=== PATIENT | male | born 1965 | race Caucasian/White ===

== ENCOUNTER 2018-04-04 17:27 | Inpatient (IN) ==
[2018-04-04] MEDS ORDERED: *HR* LORazepam 2 MG/ML VIAL IVP ONE (17:38)
[2018-04-04] MEDS ORDERED: Folic Acid 1 MG in D5% in Water 50 ML IVPB ONE (17:38)
[2018-04-04] MEDS ORDERED: 0.9 % Sodium Chloride 1,000 ML IVC ONE (17:38)
[2018-04-04] MEDS ORDERED: Thiamine (B-1) 100 MG in D5% in Water 50 ML IVPB ONE (17:38)
[2018-04-04] MEDS ORDERED: MVI, adult with vitamin K 10 ML in 0.9 % Sodium Chloride 1,000 ML IVC ONE (17:38)
--- NOTE | 2018-04-04 17:58 | Emergency Department Note ---
Disposition Clinical Impression: Alcohol withdrawal Qualifiers: Complication of substance-induced condition: uncomplicated Qualified Code(s): F10.230 - Alcohol dependence with withdrawal, uncomplicated Pancreatitis Qualifiers: Chronicity: acute Pancreatitis type: alcohol induced Acute pancreatitis complication: no infection or necrosis Qualified Code(s): K85.20 - Alcohol induced acute pancreatitis without necrosis or infection Disposition: Admitted As Inpatient Condition: Fair Referrals: Aj Tobias MD [Primary Care Provider] - Forms: ED Satisfaction Letter, Work/School Release Time of Disposition: 18:51 Abdominal Pain HPI - General Chief Complaint: ED Abdominal Pain Stated Complaint: abd pain Time Seen by Provider: 04/04/18 17:32 Source: patient - History of Present Illness HPI Narrative: 52 yo male presents with acute upper abdominal pain. He thinks his pancreas is causing his pain - he has a PMH of chronic pancreatitis due to alcohol abuse. He also is in acute withdrawal - his last drink was (2 days ago). He was drinking 12-18 beers daily prior to stopping. He has associated nausea without vomiting, early satiety, nonbloody nonmucus diarrhea (3 episodes today) , and tremors. Pain Scale: 10 - Related Data Home Medications Medication Instructions Recorded Confirmed Fluticasone Propionate Nasal 2 spr NS DAILY PRN 01/09/18 02/25/18 [Flonase] Losartan Potassium [Cozaar] 75 mg PO DAILY 01/09/18 02/25/18 Montelukast [Singulair] 10 mg PO HS 01/09/18 02/25/18 Naproxen [Naproxen] 500 mg PO Q12H PRN 01/09/18 02/25/18 Omeprazole [PriLOSEC] 40 mg PO DAILY 01/09/18 02/25/18 Zolpidem [Ambien] 10 mg PO HS PRN 01/09/18 02/25/18 Atorvastatin [Lipitor] 10 mg PO DAILY 02/25/18 02/25/18 Previous Rx's Medication Instructions Recorded LORazepam [Ativan] 1 mg PO Q6H 5 Days #20 tablet 02/25/18 Ondansetron ODT [Zofran ODT] 4 mg SL Q6HR PRN #15 tab.rapdis 02/25/18 OxyCODONE/APAP 5/325 [Percocet 1 each PO Q4H PRN 4 Days #18 tablet 02/25/18 5/325 MG] Allergies Allergy/AdvReac Type Severity Reaction Status Date / Time diphenhydramine AdvReac Shakiness Verified 02/25/18 09:06 [From Benadryl] Constitutional: Denies: weakness Cardiovascular: Reports: chest pain ("due to anxiety"). Denies: palpitations Respiratory: Denies: dyspnea Gastrointestinal: Reports: abdominal pain, nausea, diarrhea. Denies: vomiting Genitourinary: Denies: dysuria, hematuria Neurological: Reports: headache, other (tremor) Psychiatric: Denies: suicidal thoughts, homicidal thoughts, auditory hallucinations, visual hallucinations Abdominal Pain PMH - Past Medical History Medical history: Reports: asthma, hyperlipidemia, hypertension, other Psychiatric history: Reports: no psych history - Social History Smoking status: Former smoker Alcohol use: Reports: heavy Drug use: Reports: none Physical Exam - General Limitations: no limitations General appearance: alert, in no apparent distress - Head Head exam: atraumatic, normocephalic, normal inspection - Eye Eye exam: Present: normal appearance - ENT ENT exam: mucous membranes moist - Neck Neck exam: Present: normal inspection - Chest Chest inspection: Present: normal inspection - Respiratory Respiratory exam: Present: normal lung sounds bilaterally - Cardiovascular Cardiovascular exam: Present: regular rate, normal rhythm, normal heart sounds - Abdominal Exam Abdominal exam: Present: soft, tenderness, normal bowel sounds. Absent: distention, guarding, rebound, rigidity Abdominal tenderness: Present: RUQ, LUQ, moderate - Extremities Exam Extremities exam: Present: normal inspection, other (posterior tibial pulses +2/ 4 bilateral). Absent: pedal edema Course Vital Signs Temperature 97.7 F 04/04/18 17:29 Pulse Rate 92 04/04/18 17:29 Respiratory Rate 16 04/04/18 17:29 Blood Pressure 158/96 04/04/18 17:29 O2 Sat by Pulse Oximetry 99 04/04/18 17:29 Temperature 97.7 F 04/04/18 17:29 Pulse Rate 92 04/04/18 17:29 Respiratory Rate 16 04/04/18 17:29 Blood Pressure 158/96 04/04/18 17:29 O2 Sat by Pulse Oximetry 99 04/04/18 17:29 Oxygen Delivery Oxygen Delivery Room Air Abdominal Pain - MDM Narrative Medical decision making narrative: 52 yo male with acute onset abdominal pain 2 days after alcohol cessation. PMH of chronic pancreatitis and alcohol abuse. Currently experiencing tremors, but no hallucinations or delirium. Lipase in the 200s, unsure of amount of pancreatic insufficiency. Admit to medicine. Spoke to Dr. Cao, who agrees to admit the patient. - Lab Data Result diagrams: 04/04/18 17:45 04/04/18 17:45 Lab Results 04/04/18 04/04/18 04/04/18 Range/Units 17:45 17:45 17:45 WBC 11.1 (4.3-11.1) K/mcL RBC 4.84 (4.19-5.50) M/mcL Hgb 15.5 (12.9-16.9) g/dL Hct 44.1 (37.5-50.1) % MCV 91.1 (83.0-100.0) fL MCH 32.0 (28.0-33.3) pg MCHC 35.1 (31.6-35.5) g/dL RDW 12.7 (11.5-14.5) % Plt Count 148 (140-400) K/mcL MPV 10.5 (9.4-12.4) fL Immature Gran % 0.3 (0-4) % Seg Neutrophils % 72.5 % Lymphocytes % 14.1 % Monocytes % 11.0 % Eosinophils % 1.7 % Basophils % 0.4 % Neutrophils # 8.0 (1.6-8.9) K/mcL Lymphocytes # 1.6 (0.6-4.6) K/mcL Monocytes # 1.2 (0.0-1.3) K/mcL Eosinophils # 0.2 (0.0-0.6) K/mcL Basophils # 0.0 (0.0-0.2) K/mcL PT (9.4-12.1) Seconds INR Sodium (136-145) mEq/L Potassium (3.5-5.1) mEq/L Chloride (98-107) mEq/L Carbon Dioxide (23-29) mEq/L BUN (6-20) mg/dL Creatinine (0.70-1.30) mg/dL Est GFR ( Amer) (> 60) Est GFR (Non-Af Amer) (> 60) BUN/Creatinine Ratio (6-26) Glucose (70-105) mg/dL Calculated Osmolality (280-300) Calcium (8.6-10.3) mg/dL Phosphorus (2.7-4.5) mg/dL Magnesium (1.6-2.6) mg/dL Total Bilirubin (0.3-1.0) mg/dL Direct Bilirubin (0.0-0.2) mg/dL Indirect Bilirubin (0.0-1.2) mg/dL AST (13-39) Units/L ALT (7-52) Units/L Alkaline Phosphatase (34-104) Units/L Serum Total Protein (6.4-8.9) g/dL Albumin (3.5-5.7) g/dL Globulin (2.4-3.5) g/dL Albumin/Globulin Ratio (1.1-2.2) Lipase (11-82) Units/L Urine Color Yellow (Yellow) Urine Clarity Clear (Clear) Urine pH 6.0 (5.0-8.0) pH Units Ur Specific [place] 1.025 (1.010-1.025) Urine Protein Negative (Neg-Trace) mg/dL Urine Glucose (UA) 100 H (Normal) mg/dL Urine Ketones Negative (Negative) mg/dL Urine Blood Negative (Negative) Urine Nitrite Negative (Negative) Urine Bilirubin Negative (Negative) Urine Urobilinogen Normal (Normal) mg/dL Ur Leukocyte Esterase Negative (Negative) Urine Opiates Screen Negative (Zifbqh=980) ng/mL Ur Barbiturates Screen Negative (Vlsnij=127) ng/mL Ur Phencyclidine Scrn Negative (Cutoff=25) ng/mL Ur Amphetamines Screen Negative (Dyhwqo=8519) ng/mL U Benzodiazepines Scrn Positive H (Nhvepb=967) ng/mL Urine Cocaine Screen Negative (Cutoff= 300) ng/mL U Marijuana (THC) Screen Negative (Cutoff = 50) ng/mL Ur Drug Screen Interp See Below Ethyl Alcohol (Less than 10) mg/dL 04/04/18 04/04/18 Range/Units 17:45 17:45 WBC (4.3-11.1) K/mcL RBC (4.19-5.50) M/mcL Hgb (12.9-16.9) g/dL Hct (37.5-50.1) % MCV (83.0-100.0) fL MCH (28.0-33.3) pg MCHC (31.6-35.5) g/dL RDW (11.5-14.5) % Plt Count (140-400) K/mcL MPV (9.4-12.4) fL Immature Gran % (0-4) % Seg Neutrophils % % Lymphocytes % % Monocytes % % Eosinophils % % Basophils % % Neutrophils # (1.6-8.9) K/mcL Lymphocytes # (0.6-4.6) K/mcL Monocytes # (0.0-1.3) K/mcL Eosinophils # (0.0-0.6) K/mcL Basophils # (0.0-0.2) K/mcL PT 10.4 (9.4-12.1) Seconds INR 0.9 Sodium 138 (136-145) mEq/L Potassium 3.6 (3.5-5.1) mEq/L Chloride 100 (98-107) mEq/L Carbon Dioxide 28 (23-29) mEq/L BUN 16 (6-20) mg/dL Creatinine 0.72 (0.70-1.30) mg/dL Est GFR ( Amer) > 60 (> 60) Est GFR (Non-Af Amer) > 60 (> 60) BUN/Creatinine Ratio 22 (6-26) Glucose 105 (70-105) mg/dL Calculated Osmolality 288 (280-300) Calcium 9.4 (8.6-10.3) mg/dL Phosphorus 3.1 (2.7-4.5) mg/dL Magnesium 1.9 (1.6-2.6) mg/dL Total Bilirubin 0.9 (0.3-1.0) mg/dL Direct Bilirubin 0.1 (0.0-0.2) mg/dL Indirect Bilirubin 0.8 (0.0-1.2) mg/dL AST 33 (13-39) Units/L ALT 39 (7-52) Units/L Alkaline Phosphatase 96 (34-104) Units/L Serum Total Protein 7.2 (6.4-8.9) g/dL Albumin 4.4 (3.5-5.7) g/dL Globulin 2.8 (2.4-3.5) g/dL Albumin/Globulin Ratio 1.6 (1.1-2.2) Lipase 283 H (11-82) Units/L Urine Color (Yellow) Urine Clarity (Clear) Urine pH (5.0-8.0) pH Units Ur Specific [place] (1.010-1.025) Urine Protein (Neg-Trace) mg/dL Urine Glucose (UA) (Normal) mg/dL Urine Ketones (Negative) mg/dL Urine Blood (Negative) Urine Nitrite (Negative) Urine Bilirubin (Negative) Urine Urobilinogen (Normal) mg/dL Ur Leukocyte Esterase (Negative) Urine Opiates Screen (Metnsg=271) ng/mL Ur Barbiturates Screen (Qaenzh=140) ng/mL Ur Phencyclidine Scrn (Cutoff=25) ng/mL Ur Amphetamines Screen (Avgiri=9851) ng/mL U Benzodiazepines Scrn (Umhcuo=441) ng/mL Urine Cocaine Screen (Cutoff= 300) ng/mL U Marijuana (THC) Screen (Cutoff = 50) ng/mL Ur Drug Screen Interp Ethyl Alcohol < 10 (Less than 10) mg/dL
[2018-04-04 18:01] LABS: Bilirubin,Urine Negative (Negative); Blood,Urine Negative (Negative); Clarity,Urine Clear (Clear); Color,Urine Yellow (Yellow); Glucose,Urine (UA) 100 mg/dL (Normal); Ketones,Urine Negative (Negative); Leukocyte Esterase,Urine Negative (Negative); Nitrite,Urine Negative (Negative); Protein,Urine Negative (Neg-Trace); Specific Gravity,Urine 1.025 (1.010-1.025); Urobilinogen,Urine Normal (Normal)
[2018-04-04 18:02] LABS: Basophils % 0.4 %; Eosinophils # 0.2 K/mcL (0.0-0.6); Eosinophils % 1.7 %; Hematocrit 44.1 % (37.5-50.1); Hemoglobin 15.5 g/dL (12.9-16.9); Immature Granulocytes % 0.3 % (0-4); Lymphocytes # 1.6 K/mcL (0.6-4.6); Lymphocytes % 14.1 %; Mean Corpuscular HGB Conc 35.1 g/dL (31.6-35.5); Mean Corpuscular Volume 91.1 fL (83.0-100.0); Mean Platelet Volume 10.5 fL (9.4-12.4); Monocytes # 1.2 K/mcL (0.0-1.3); Platelet Count 148 K/mcL (140-400); Red Blood Count 4.84 M/mcL (4.19-5.50); Red Cell Distribution Width 12.7 % (11.5-14.5); Segmented Neutrophils % 72.5 %
[2018-04-04 18:07] LABS: INR 0.9; Prothrombin Time 10.4 Seconds (9.4-12.1)
[2018-04-04 18:21] LABS: Alanine Aminotransferase 39 Units/L (7-52); Albumin 4.4 g/dL (3.5-5.7); Albumin/Globulin Ratio 1.6 (1.1-2.2); Alkaline Phosphatase 96 Units/L (34-104); Aspartate Amino Transferase 33 Units/L (13-39); BUN/Creatinine Ratio 22 (6-26); Bilirubin,Direct 0.1 mg/dL (0.0-0.2); Bilirubin,Indirect 0.8 mg/dL (0.0-1.2); Bilirubin,Total 0.9 mg/dL (0.3-1.0); Blood Urea Nitrogen 16 mg/dL (6-20); Calcium 9.4 mg/dL (8.6-10.3); Carbon Dioxide 28 mEq/L (23-29); Chloride 100 mEq/L (98-107); Ethanol < 10 mg/dL (Less than 10); Globulin 2.8 g/dL (2.4-3.5); Glucose 105 mg/dL (70-105); Lipase 283 Units/L (11-82); Magnesium 1.9 mg/dL (1.6-2.6); Osmolality,Calculated 288 (280-300); Phosphorous 3.1 mg/dL (2.7-4.5); Potassium 3.6 mEq/L (3.5-5.1); Sodium 138 mEq/L (136-145); Total Protein 7.2 g/dL (6.4-8.9); eGFR For Non-African Americans > 60 (> 60)
[2018-04-04 18:26] LABS: Amphetamine Screen,Urine Negative ng/mL (Cutoff=1000); Barbiturate Screen,Urine Negative ng/mL (Cutoff=200); Benzodiazepines Screen,Urine Positive ng/mL (Cutoff=200); Cannabinoid Screen,Urine Negative ng/mL (Cutoff = 50); Cocaine Screen,Urine Negative ng/mL (Cutoff= 300); Opiate Screen,Urine Negative ng/mL (Cutoff=300); Phencyclidine Screen,Urine Negative ng/mL (Cutoff=25)
[2018-04-04] MEDS ORDERED: *HR* FentaNYL (PF) 100 MCG/2 ML VIAL IVP ONE (18:30)
--- NOTE | 2018-04-04 18:38 | Emergency Department Note ---
Disposition Clinical Impression: Alcohol withdrawal Qualifiers: Complication of substance-induced condition: uncomplicated Qualified Code(s): F10.230 - Alcohol dependence with withdrawal, uncomplicated Pancreatitis Qualifiers: Chronicity: acute Pancreatitis type: alcohol induced Acute pancreatitis complication: no infection or necrosis Qualified Code(s): K85.20 - Alcohol induced acute pancreatitis without necrosis or infection Disposition: Admitted As Inpatient Forms: ED Satisfaction Letter, Work/School Release Time of Disposition: 18:38 General Adult HPI - General Chief complaint: ED Abdominal Pain Stated complaint: abd pain Time Seen by Provider: 04/04/18 17:32 Source: patient Limitations: no limitations - History of Present Illness Pain Scale: 10 - Related Data Home Medications Medication Instructions Recorded Confirmed Fluticasone Propionate Nasal 2 spr NS DAILY PRN 01/09/18 02/25/18 [Flonase] Losartan Potassium [Cozaar] 75 mg PO DAILY 01/09/18 02/25/18 Montelukast [Singulair] 10 mg PO HS 01/09/18 02/25/18 Naproxen [Naproxen] 500 mg PO Q12H PRN 01/09/18 02/25/18 Omeprazole [PriLOSEC] 40 mg PO DAILY 01/09/18 02/25/18 Zolpidem [Ambien] 10 mg PO HS PRN 01/09/18 02/25/18 Atorvastatin [Lipitor] 10 mg PO DAILY 02/25/18 02/25/18 Previous Rx's Medication Instructions Recorded LORazepam [Ativan] 1 mg PO Q6H 5 Days #20 tablet 02/25/18 Ondansetron ODT [Zofran ODT] 4 mg SL Q6HR PRN #15 tab.rapdis 02/25/18 OxyCODONE/APAP 5/325 [Percocet 1 each PO Q4H PRN 4 Days #18 tablet 02/25/18 5/325 MG] Allergies Allergy/AdvReac Type Severity Reaction Status Date / Time diphenhydramine AdvReac Shakiness Verified 02/25/18 09:06 [From Benadryl] Constitutional: Denies: weakness Cardiovascular: Reports: chest pain ("due to anxiety"). Denies: palpitations Respiratory: Denies: dyspnea Gastrointestinal: Reports: abdominal pain, nausea, diarrhea. Denies: vomiting Genitourinary: Denies: dysuria, hematuria Neurological: Reports: headache, other (tremor) Psychiatric: Denies: suicidal thoughts, homicidal thoughts, auditory hallucinations, visual hallucinations Past Medical History - Past Medical History Medical history: Reports: asthma, hyperlipidemia, hypertension, other Psychiatric history: Reports: no psych history - Social History Smoking Status: Former smoker Smokeless Tobacco Status: No Alcohol use: Reports: heavy Drug use: Reports: none Physical Exam - General Limitations: no limitations General appearance: alert, in no apparent distress Course Vital Signs Temperature 97.7 F 04/04/18 17:29 Pulse Rate 92 04/04/18 17:29 Respiratory Rate 16 04/04/18 17:29 Blood Pressure 158/96 04/04/18 17:29 O2 Sat by Pulse Oximetry 99 04/04/18 17:29 Temperature 97.7 F 04/04/18 17:29 Pulse Rate 92 04/04/18 17:29 Respiratory Rate 16 04/04/18 17:29 Blood Pressure 158/96 04/04/18 17:29 O2 Sat by Pulse Oximetry 99 04/04/18 17:29 Oxygen Delivery Oxygen Delivery Room Air Medical Decision Making - Lab Data Result diagrams: 04/04/18 17:45 04/04/18 17:45 Lab Results 04/04/18 04/04/18 04/04/18 Range/Units 17:45 17:45 17:45 WBC 11.1 (4.3-11.1) K/mcL RBC 4.84 (4.19-5.50) M/mcL Hgb 15.5 (12.9-16.9) g/dL Hct 44.1 (37.5-50.1) % MCV 91.1 (83.0-100.0) fL MCH 32.0 (28.0-33.3) pg MCHC 35.1 (31.6-35.5) g/dL RDW 12.7 (11.5-14.5) % Plt Count 148 (140-400) K/mcL MPV 10.5 (9.4-12.4) fL Immature Gran % 0.3 (0-4) % Seg Neutrophils % 72.5 % Lymphocytes % 14.1 % Monocytes % 11.0 % Eosinophils % 1.7 % Basophils % 0.4 % Neutrophils # 8.0 (1.6-8.9) K/mcL Lymphocytes # 1.6 (0.6-4.6) K/mcL Monocytes # 1.2 (0.0-1.3) K/mcL Eosinophils # 0.2 (0.0-0.6) K/mcL Basophils # 0.0 (0.0-0.2) K/mcL PT (9.4-12.1) Seconds INR Sodium (136-145) mEq/L Potassium (3.5-5.1) mEq/L Chloride (98-107) mEq/L Carbon Dioxide (23-29) mEq/L BUN (6-20) mg/dL Creatinine (0.70-1.30) mg/dL Est GFR ( Amer) (> 60) Est GFR (Non-Af Amer) (> 60) BUN/Creatinine Ratio (6-26) Glucose (70-105) mg/dL Calculated Osmolality (280-300) Calcium (8.6-10.3) mg/dL Phosphorus (2.7-4.5) mg/dL Magnesium (1.6-2.6) mg/dL Total Bilirubin (0.3-1.0) mg/dL Direct Bilirubin (0.0-0.2) mg/dL Indirect Bilirubin (0.0-1.2) mg/dL AST (13-39) Units/L ALT (7-52) Units/L Alkaline Phosphatase (34-104) Units/L Serum Total Protein (6.4-8.9) g/dL Albumin (3.5-5.7) g/dL Globulin (2.4-3.5) g/dL Albumin/Globulin Ratio (1.1-2.2) Lipase (11-82) Units/L Urine Color Yellow (Yellow) Urine Clarity Clear (Clear) Urine pH 6.0 (5.0-8.0) pH Units Ur Specific [place] 1.025 (1.010-1.025) Urine Protein Negative (Neg-Trace) mg/dL Urine Glucose (UA) 100 H (Normal) mg/dL Urine Ketones Negative (Negative) mg/dL Urine Blood Negative (Negative) Urine Nitrite Negative (Negative) Urine Bilirubin Negative (Negative) Urine Urobilinogen Normal (Normal) mg/dL Ur Leukocyte Esterase Negative (Negative) Urine Opiates Screen Negative (Jocpkw=618) ng/mL Ur Barbiturates Screen Negative (Kvqljj=967) ng/mL Ur Phencyclidine Scrn Negative (Cutoff=25) ng/mL Ur Amphetamines Screen Negative (Ebqtjk=4418) ng/mL U Benzodiazepines Scrn Positive H (Fopwfl=044) ng/mL Urine Cocaine Screen Negative (Cutoff= 300) ng/mL U Marijuana (THC) Screen Negative (Cutoff = 50) ng/mL Ur Drug Screen Interp See Below Ethyl Alcohol (Less than 10) mg/dL 04/04/18 04/04/18 Range/Units 17:45 17:45 WBC (4.3-11.1) K/mcL RBC (4.19-5.50) M/mcL Hgb (12.9-16.9) g/dL Hct (37.5-50.1) % MCV (83.0-100.0) fL MCH (28.0-33.3) pg MCHC (31.6-35.5) g/dL RDW (11.5-14.5) % Plt Count (140-400) K/mcL MPV (9.4-12.4) fL Immature Gran % (0-4) % Seg Neutrophils % % Lymphocytes % % Monocytes % % Eosinophils % % Basophils % % Neutrophils # (1.6-8.9) K/mcL Lymphocytes # (0.6-4.6) K/mcL Monocytes # (0.0-1.3) K/mcL Eosinophils # (0.0-0.6) K/mcL Basophils # (0.0-0.2) K/mcL PT 10.4 (9.4-12.1) Seconds INR 0.9 Sodium 138 (136-145) mEq/L Potassium 3.6 (3.5-5.1) mEq/L Chloride 100 (98-107) mEq/L Carbon Dioxide 28 (23-29) mEq/L BUN 16 (6-20) mg/dL Creatinine 0.72 (0.70-1.30) mg/dL Est GFR ( Amer) > 60 (> 60) Est GFR (Non-Af Amer) > 60 (> 60) BUN/Creatinine Ratio 22 (6-26) Glucose 105 (70-105) mg/dL Calculated Osmolality 288 (280-300) Calcium 9.4 (8.6-10.3) mg/dL Phosphorus 3.1 (2.7-4.5) mg/dL Magnesium 1.9 (1.6-2.6) mg/dL Total Bilirubin 0.9 (0.3-1.0) mg/dL Direct Bilirubin 0.1 (0.0-0.2) mg/dL Indirect Bilirubin 0.8 (0.0-1.2) mg/dL AST 33 (13-39) Units/L ALT 39 (7-52) Units/L Alkaline Phosphatase 96 (34-104) Units/L Serum Total Protein 7.2 (6.4-8.9) g/dL Albumin 4.4 (3.5-5.7) g/dL Globulin 2.8 (2.4-3.5) g/dL Albumin/Globulin Ratio 1.6 (1.1-2.2) Lipase 283 H (11-82) Units/L Urine Color (Yellow) Urine Clarity (Clear) Urine pH (5.0-8.0) pH Units Ur Specific [place] (1.010-1.025) Urine Protein (Neg-Trace) mg/dL Urine Glucose (UA) (Normal) mg/dL Urine Ketones (Negative) mg/dL Urine Blood (Negative) Urine Nitrite (Negative) Urine Bilirubin (Negative) Urine Urobilinogen (Normal) mg/dL Ur Leukocyte Esterase (Negative) Urine Opiates Screen (Kkynpm=442) ng/mL Ur Barbiturates Screen (Pogudl=947) ng/mL Ur Phencyclidine Scrn (Cutoff=25) ng/mL Ur Amphetamines Screen (Fmuhfg=5734) ng/mL U Benzodiazepines Scrn (Dclydx=971) ng/mL Urine Cocaine Screen (Cutoff= 300) ng/mL U Marijuana (THC) Screen (Cutoff = 50) ng/mL Ur Drug Screen Interp Ethyl Alcohol < 10 (Less than 10) mg/dL Attestation Statement - Attestation Attestation: I examined this patient and my medical decision-making was reviewed with the Resident Physician. I agree with the documented findings, disposition and treatment plan as described except to the extent set forth below. 52 year old male presents to the ED with complaints of abdominal pain and is a daily drinker and statse that he hasnt had antyhing to drink since Thrusday. he hasbeen drinking more since he was fired from his job about 3 weeks ago. Patinet states that he has a history of pancreatitis and that he was aoffered admission one week ago but declined because he though he could manage it at home. TOday he is experincing icnreased epigastric pain with nausea without vomitting and states that th is roberta simlair to his pancreatitis attacks in the pas.t It appears that it is 283 tonight and he is having mild tremors at bedside. We will admit to medicine for ETOH withdrawl and pancreatitis
[2018-04-04] MEDS ORDERED: Ondansetron 4 MG/2 ML VIAL IVP ONE (18:39)
--- NOTE | 2018-04-04 20:22 | Internal Med History&Physical ---
Date of Encounter: 04/04/18 Time of Encounter: 20:45 Internal Medicine - H&P: HPI Chief complaint: Acute pancreatitis, alcohol withdrawal Admitted From: Home Plans for Post Hospital Care: Home History of present illness: Mr. Mckeon is a 52 year old male Patient presented to the emergency room after a several day history of epigastric pain. He states he stopped drinking 3 days ago due to this pain and thus subsequently has been going through alcohol withdrawal. On the morning of admission he states he tried to drink some juice and chicken broth but that made his pain much worse. He is a heavy alcohol user stating that he drinks 20- 30 beers a day. He denies other drug use. The pain he feels is centrally located in the epigastric area radiates to the left side and is worse with eating and drinking. He has had similar episodes like this including 2 hospitalizations in the past. He has had a few episodes of loose stools but otherwise denies nausea and vomiting. He had been sober from alcohol for about 2 years but then started back up again a few months ago after he was fired from his job. He has been undergoing active withdrawal exhibiting tremors but denies hallucinations both auditory and visual. In the emergency room U tox positive for benzodiazepines and blood alcohol level was less than 10. CBC and BMP were both within normal limits. His lipase was elevated to 283. Chest x-ray showed no acute process. He was started on a banana bag, given Zofran, Ativan, fentanyl and 1 L of normal saline. He was admitted for further management of his pancreatitis and alcohol withdrawal. Past Med Surg Social Fam HX - Past Medical History Medical history: asthma, hyperlipidemia, hypertension, other Additional medical history: LIVER DISEASE Psychiatric history: no psych history - Past Surgical History Additional surgical history: double hernia repair. septoplasty - Social History Smoking Status: Former smoker Smokeless Tobacco Status: No Alcohol use: heavy Drug use: none - Family History Father Hx Family Cancer: Yes (non hodgkins) Internal Medicine - H&P: Meds Fluticasone Propionate Nasal [Flonase] 2 spr NS DAILY PRN 01/09/18 [History] Losartan Potassium [Cozaar] 75 mg PO DAILY 01/09/18 [History] Montelukast [Singulair] 10 mg PO HS 01/09/18 [History] Naproxen [Naproxen] 500 mg PO Q12H PRN 01/09/18 [History] Omeprazole [PriLOSEC] 40 mg PO DAILY 01/09/18 [History] Atorvastatin [Lipitor] 10 mg PO DAILY 02/25/18 [History] 3 Allergy/AdvReac Type Severity Reaction Status Date / Time diphenhydramine AdvReac Shakiness Verified 02/25/18 09:06 [From Benadryl] All Systems PM: A 10-system review of systems was performed and is negative for pertinent findings except as documented above in the HPI. - Constitutional Vitals: Temp Pulse Resp BP Pulse Ox 97.7 F 89 18 147/89 97 04/04/18 17:29 04/04/18 19:47 04/04/18 20:08 04/04/18 20:08 04/04/18 19:47 General appearance: Present: cooperative, mild distress, A&O X 3, answers questions appropriately - Head Head exam: Present: normal inspection - Eye Eye exam: Present: EOMI, normal appearance - Neck Neck exam general surgery: Present: full ROM. Absent: tenderness - Respiratory Respiratory exam: Present: CTAB. Absent: chest wall tenderness, decreased breath sounds, respiratory distress, wheezes - Cardiovascular Cardiovascular exam: Present: RRR. Absent: diastolic murmur, systolic murmur - GI/Abdominal GI/Abdominal exam: Present: hernia, normal bowel sounds, soft, tenderness Additional comments: Epigastric tenderness with pain in the left upper quadrant. Right upper quadrant mildly tender to palpation. Lower abdominal quadrants nontender. Ventral wall hernia self-reducible, presents with Valsalva and abdominal pressure - Extremities Exam Extremities exam: Present: warm, radial pulses palpable and symmetrical. Absent : calf tenderness, pedal edema, tenderness - Neurological Exam Neurological exam: Present: no focal deficits. Absent: strengths equal and symetr throughout, facial droop, speech deficit Additional comments: Slight tremor bilaterally upper extremities - Skin Skin exam: Present: dry, normal color, warm Internal Med - H&P Results - Labs CBC & Chem 7: 04/04/18 17:45 04/04/18 17:45 - Assessment and plan (1) Pancreatitis Current Visit: Yes Status: Acute Assessment and plan: Patient's lipase elevated to 283. His alcohol level was less than 10. He is a heavy drinker and likely this is the cause of his pancreatitis. He has had several episodes of this in the past including 2 previous hospitalizations. Nothing by mouth until patient's pain improves then proceed to advance diet as tolerated Sublingual oxycodone for pain control Continue to monitor O2 status Fluid hydration Qualifiers: Chronicity: acute Pancreatitis type: alcohol induced Acute pancreatitis complication: no infection or necrosis Qualified Code(s): K85.20 - Alcohol induced acute pancreatitis without necrosis or infection (2) Alcohol withdrawal Current Visit: Yes Status: Acute Assessment and plan: Patient has tremors on exam, but apparently this has improved since receiving Ativan in the emergency room. [facility] protocol Continue to Monitor Qualifiers: Complication of substance-induced condition: uncomplicated Qualified Code(s ): F10.230 - Alcohol dependence with withdrawal, uncomplicated (3) Hypertension Current Visit: Yes Status: Acute Assessment and plan: Patient takes losartan at home, blood pressure slightly elevated in the ER 159/ 95, currently 124/72. Continue to monitor Qualifiers: Qualified Code(s): I10 - Essential (primary) hypertension (4) GERD (gastroesophageal reflux disease) Current Visit: Yes Status: Acute Assessment and plan: Patient takes omeprazole every now and then Continue at discharge Qualifiers: Qualified Code(s): K21.9 - Gastro-esophageal reflux disease without esophagitis (5) Hyperlipidemia Current Visit: Yes Status: Acute Assessment and plan: Patient takes atorvastatin at home Continue current management when patient capable of eating Qualifiers: Qualified Code(s): E78.5 - Hyperlipidemia, unspecified (6) Insomnia Current Visit: Yes Status: Acute Assessment and plan: Patient takes Ambien and Ativan at home. He will be receiving benzodiazepines as treatment for his alcohol withdrawal, thus we will hold his other medicines. Monitor respiratory status Qualifiers: Qualified Code(s): G47.00 - Insomnia, unspecified (7) DVT prophylaxis Current Visit: Yes Status: Acute Assessment and plan: Heparin subcutaneous - Time Spent With Patient Total time spent is greater than 50% in coordination of care (as documented) at patient's floor/unit and/or counseling patient: Greater than 35 minutes
[2018-04-04] MEDS ORDERED: Naloxone 0.4 MG/ML INJ IVP PRN (21:04)
[2018-04-04] MEDS ORDERED: OXYCODONE Oral CONC 10 MG/0.5 ML ORAL.SYG SL PRN (21:04)
[2018-04-04] MEDS ORDERED: Ondansetron 4 MG/2 ML VIAL IVP PRN (21:04)
[2018-04-04] MEDS ORDERED: *HR* LORazepam 1 MG TABLET PO SCH (21:15)
[2018-04-04] MEDS ORDERED: *HR* LORazepam 2 MG/ML VIAL IVP PRN (21:26)
[2018-04-04] MEDS: OXYCODONE Oral CONC 10 MG/0.5 ML ORAL.SYG SL PRN (21:36)
[2018-04-04] MEDS: 0.9 % Sodium Chloride 1,000 ML IVC SCH ×2 (21:42→22:53)
[2018-04-04] MEDS: *HR* LORazepam 2 MG/ML VIAL IVP PRN (21:42)
[2018-04-05] MEDS: 0.9 % Sodium Chloride 1,000 ML IVC SCH ×3 (00:01→21:41)
[2018-04-05] MEDS: *HR* LORazepam 2 MG/ML VIAL IVP PRN ×5 (01:28→21:40)
[2018-04-05] MEDS: OXYCODONE Oral CONC 10 MG/0.5 ML ORAL.SYG SL PRN ×5 (01:28→21:36)
[2018-04-05] MEDS: *HR* Heparin 5,000 UNIT/ML VIAL SQ SCH ×2 (05:32→17:27)
[2018-04-05 06:30] LABS: Hematocrit 37.2 % (37.5-50.1); Hemoglobin 12.8 g/dL (12.9-16.9); Mean Corpuscular HGB Conc 34.4 g/dL (31.6-35.5); Mean Corpuscular Hemoglobin 31.5 pg (28.0-33.3); Mean Corpuscular Volume 91.6 fL (83.0-100.0); Mean Platelet Volume 11.1 fL (9.4-12.4); Platelet Count 135 K/mcL (140-400); Red Blood Count 4.06 M/mcL (4.19-5.50); Red Cell Distribution Width 13.1 % (11.5-14.5)
[2018-04-05 06:51] LABS: BUN/Creatinine Ratio 11 (6-26); Blood Urea Nitrogen 7 mg/dL (6-20); Calcium 8.3 mg/dL (8.6-10.3); Carbon Dioxide 26 mEq/L (23-29); Chloride 104 mEq/L (98-107); Glucose 109 mg/dL (70-105); Osmolality,Calculated 285 (280-300); Potassium 3.5 mEq/L (3.5-5.1); Sodium 138 mEq/L (136-145); eGFR For Non-African Americans > 60 (> 60)
--- NOTE | 2018-04-05 10:20 | Internal Med Progress Note ---
Hospitalist Progress Note - Encounter Date of Encounter: 04/05/18 Time of Encounter: 10:18 - Subjective Interval History: Patient seen and examined at bedside. Cont to expereince abd pain, and nausea. Has withdrawal sx of hallucinations and tremors No seizure activity. Cont with CIWA - Exam Vitals: Temp Pulse Resp BP Pulse Ox 98.9 F 106 16 130/75 93 04/05/18 06:40 04/05/18 06:40 04/05/18 06:40 04/05/18 06:40 04/05/18 06:40 Exam: General: Alert and oriented x 3 HEENT:EOM, pupils equal, round and reactive. Cardiovascular:Normal S1 & S2, No JVD. Pulse regular. Lungs: CTA Abdomen:Soft, tender to palp in R upper quad Extremities:No deformity or swelling Neurological:Normal cognition and motor skills. Non-focal- no tremors or seizure activity noted Skin:Normal color, no rash, no lesions. Pulses:Carotid and radial pulses normal +2. reports visual and auditory hallucinations - Assessment and Plan (1) Pancreatitis Current Visit: Yes Status: Acute Assessment and Plan: Presented with elevated lipase 283 ETOH less than 10 on presentation. Hx of heavy ETOH use most likely causing pancreatitis Cont to have abd pain- Cont with NPO state and advance as tolerated sublingual oxycodone for pain (2) Alcohol withdrawal Current Visit: Yes Status: Acute Assessment and Plan: No tremors noted at this time, however nurse reports tremors this am. Admits to visual and auditory hallucinations CIWA protocol No seizure activity Cont seizure precautions (3) GERD (gastroesophageal reflux disease) Current Visit: Yes Status: Acute Assessment and Plan: 1 Protonix IV (4) Hyperlipidemia Current Visit: Yes Status: Acute Assessment and Plan: Resume statin once able to tolerate orals (5) Insomnia Current Visit: Yes Status: Acute Assessment and Plan: Patient takes Ambien and Ativan at home, we will hold for now -cont benzodiazepines for ETOH withdrawal. (6) DVT prophylaxis Current Visit: Yes Status: Acute Assessment and Plan: Heparin subque - Time Spent with Patient Total time spent is greater than 50% in coordination of care (as documented) at patient's floor/unit and/or counseling patient: Internal Medicine: Result - Labs CBC & Chem 7: 04/05/18 05:52 04/05/18 05:52 Labs: Short CBC 04/05/18 Range/Units 05:52 WBC 9.8 (4.3-11.1) K/mcL Hgb 12.8 L D (12.9-16.9) g/dL Hct 37.2 L (37.5-50.1) % Plt Count 135 L (140-400) K/mcL BMP 04/05/18 05:52 Sodium 138 Potassium 3.5 Chloride 104 Carbon Dioxide 26 BUN 7 Creatinine 0.65 L Glucose 109 H Calcium 8.3 L - ABG Interpretation ABG results: PT/INR, D-dimer PT 10.4 Seconds (9.4-12.1) 04/04/18 17:45 Consult Discharge Plan - Plan Referrals: Aj Tobias MD [Primary Care Provider] - (1) Pancreatitis Qualifiers: Chronicity: acute Pancreatitis type: alcohol induced Acute pancreatitis complication: no infection or necrosis Qualified Code(s): K85.20 - Alcohol induced acute pancreatitis without necrosis or infection (2) Alcohol withdrawal Qualifiers: Complication of substance-induced condition: uncomplicated Qualified Code(s) : F10.230 - Alcohol dependence with withdrawal, uncomplicated (3) GERD (gastroesophageal reflux disease) Qualifiers: Qualified Code(s): K21.9 - Gastro-esophageal reflux disease without esophagitis (4) Hyperlipidemia Qualifiers: Qualified Code(s): E78.5 - Hyperlipidemia, unspecified (5) Insomnia Qualifiers: Qualified Code(s): G47.00 - Insomnia, unspecified
[2018-04-05 10:35] LABS: Lipase 236 Units/L (11-82)
[2018-04-05] MEDS ORDERED: Thiamine (B-1) 100 MG, Folic Acid 1 MG, MVI, adult with vitamin K 10 ML in 0.9 % Sodi... IVPB SCH (18:00)
[2018-04-05] MEDS ORDERED: Acetaminophen IV 1,000 MG/100 ML INFUS..BTL IVPB ONE (23:19)
[2018-04-06] MEDS: *HR* LORazepam 2 MG/ML VIAL IVP PRN ×2 (00:06→03:59)
[2018-04-06] MEDS: *HR* Heparin 5,000 UNIT/ML VIAL SQ SCH (05:55)
[2018-04-06] MEDS: 0.9 % Sodium Chloride 1,000 ML IVC SCH ×3 (05:56→13:20)
[2018-04-06 06:22] LABS: Basophils % 0.3 %; Eosinophils # 0.1 K/mcL (0.0-0.6); Eosinophils % 1.3 %; Hematocrit 36.5 % (37.5-50.1); Hemoglobin 12.4 g/dL (12.9-16.9); Immature Granulocytes % 0.3 % (0-4); Lymphocytes # 1.2 K/mcL (0.6-4.6); Lymphocytes % 11.4 %; Mean Corpuscular Hemoglobin 31.3 pg (28.0-33.3); Mean Corpuscular Volume 92.2 fL (83.0-100.0); Mean Platelet Volume 10.4 fL (9.4-12.4); Monocytes # 1.1 K/mcL (0.0-1.3); Monocytes % 10.4 %; Neutrophils # 7.7 K/mcL (1.6-8.9); Platelet Count 130 K/mcL (140-400); Red Blood Count 3.96 M/mcL (4.19-5.50); Red Cell Distribution Width 12.7 % (11.5-14.5); Segmented Neutrophils % 76.3 %
[2018-04-06 07:38] LABS: Alanine Aminotransferase 19 Units/L (7-52); Albumin 3.7 g/dL (3.5-5.7); Albumin/Globulin Ratio 1.4 (1.1-2.2); Alkaline Phosphatase 76 Units/L (34-104); Aspartate Amino Transferase 15 Units/L (13-39); BUN/Creatinine Ratio 9 (6-26); Bilirubin,Direct 0.3 mg/dL (0.0-0.2); Bilirubin,Indirect 0.8 mg/dL (0.0-1.2); Bilirubin,Total 1.1 mg/dL (0.3-1.0); Blood Urea Nitrogen 6 mg/dL (6-20); Calcium 8.6 mg/dL (8.6-10.3); Carbon Dioxide 29 mEq/L (23-29); Chloride 100 mEq/L (98-107); Globulin 2.6 g/dL (2.4-3.5); Glucose 99 mg/dL (70-105); Osmolality,Calculated 282 (280-300); Potassium 3.1 mEq/L (3.5-5.1); Sodium 137 mEq/L (136-145); Total Protein 6.3 g/dL (6.4-8.9); eGFR For Non-African Americans > 60 (> 60)
[2018-04-06 08:56] LABS: Lipase 117 Units/L (11-82)
[2018-04-06] MEDS ORDERED: Pantoprazole 40 MG VIAL IVP SCH (09:00)
[2018-04-06] MEDS ORDERED: Potassium Chloride 40 MEQ, Lidocaine 1% 2 ML in D5% in Water 500 ML IVPB ONE (12:35)
--- NOTE | 2018-04-06 12:38 | Internal Med Progress Note ---
Hospitalist Progress Note - Encounter Date of Encounter: 04/06/18 Time of Encounter: 10:00 - Subjective Interval History: Patient seen and examined at bedside. Abd pain resolved- Lipase improved will start clear liquids and advance as tolerated . No withdrawal sx noted - Exam Vitals: Temp Pulse Resp BP Pulse Ox 98.0 F 104 18 158/97 96 04/06/18 11:34 04/06/18 11:34 04/06/18 11:34 04/06/18 11:34 04/06/18 11:34 Exam: Gen.: Vitals noted. No acute distress. AAOx3 HEENT: PERRL/EOMI, oropharynx clear, Normocephalic, atraumatic, MMM Cardiac: RRR, no murmur, +S1/S2. Pulmonary: CTA bilaterally, no wheezes, rales or rhonchi, equal chest expansion Abdomen: soft, nontender, BS noted, no guarding, no rebound. MSK: ROM intact, no joint swelling noted. Extremities: No cyanosis or clubbing. Pulses present. Neuro: A&Ox3, moves all extremities, Psych: Appropriate mood and behavior - Assessment and Plan (1) Pancreatitis Current Visit: Yes Status: Acute Assessment and Plan: Presented with elevated lipase 283 ETOH less than 10 on presentation. Hx of heavy ETOH use most likely causing pancreatitis abd pain improved no N/V - will start with clear liquids and advance as tolerated sublingual oxycodone for pain (2) Alcohol withdrawal Current Visit: Yes Status: Acute Assessment and Plan: No tremors noted at this time, [facility] protocol No seizure activity Cont seizure precautions (3) GERD (gastroesophageal reflux disease) Current Visit: Yes Status: Acute Assessment and Plan: 1 Protonix IV (4) Hyperlipidemia Current Visit: Yes Status: Acute Assessment and Plan: Resume statin once able to tolerate orals (5) Insomnia Current Visit: Yes Status: Acute Assessment and Plan: Patient takes Ambien and Ativan at home, we will hold for now -cont benzodiazepines for ETOH withdrawal. (6) Hypokalemia Current Visit: Yes Status: Acute Assessment and Plan: potassium 3.1 today- we replace and recheck (7) DVT prophylaxis Current Visit: Yes Status: Acute Assessment and Plan: Heparin subque - Time Spent with Patient Total time spent is greater than 50% in coordination of care (as documented) at patient's floor/unit and/or counseling patient: Internal Medicine: Result - Labs CBC & Chem 7: 04/06/18 06:08 04/06/18 06:08 Labs: Short CBC 04/06/18 Range/Units 06:08 WBC 10.1 (4.3-11.1) K/mcL Hgb 12.4 L (12.9-16.9) g/dL Hct 36.5 L (37.5-50.1) % Plt Count 130 L (140-400) K/mcL Neutrophils # 7.7 (1.6-8.9) K/mcL BMP 04/06/18 06:08 Sodium 137 Potassium 3.1 L Chloride 100 Carbon Dioxide 29 BUN 6 Creatinine 0.65 L Glucose 99 Calcium 8.6 Liver Function 04/06/18 Range/Units 06:08 Total Bilirubin 1.1 H (0.3-1.0) mg/dL Direct Bilirubin 0.3 H (0.0-0.2) mg/dL AST 15 (13-39) Units/L ALT 19 (7-52) Units/L Alkaline Phosphatase 76 (34-104) Units/L Albumin 3.7 (3.5-5.7) g/dL - ABG Interpretation ABG results: PT/INR, D-dimer PT 10.4 Seconds (9.4-12.1) 04/04/18 17:45 Consult Discharge Plan - Plan Referrals: Aj Tobias MD [Primary Care Provider] - (1) Pancreatitis Qualifiers: Chronicity: acute Pancreatitis type: alcohol induced Acute pancreatitis complication: no infection or necrosis Qualified Code(s): K85.20 - Alcohol induced acute pancreatitis without necrosis or infection (2) Alcohol withdrawal Qualifiers: Complication of substance-induced condition: uncomplicated Qualified Code(s) : F10.230 - Alcohol dependence with withdrawal, uncomplicated (3) GERD (gastroesophageal reflux disease) Qualifiers: Qualified Code(s): K21.9 - Gastro-esophageal reflux disease without esophagitis (4) Hyperlipidemia Qualifiers: Qualified Code(s): E78.5 - Hyperlipidemia, unspecified (5) Insomnia Qualifiers: Qualified Code(s): G47.00 - Insomnia, unspecified
[2018-04-06] MEDS ORDERED: Fluticasone Propionate Nasal 50 MCG/SPRAY BOTTLE NS PRN (13:18)
[2018-04-06 16:12] VITALS: BP 150/90
--- NOTE | 2018-04-06 17:39 | Discharge Summary ---
- NOTES TO OUTPATIENT PROVIDER Notes to Outpatient Provider: Patient was admitted with pancreatitis he did have alcohol withdrawal during admission continue to monitor electrolytes he required potassium replacement Orders not resulted at time of discharge: Pending orders 04/07/18 04:00 CBC [Complete Blood Count] [HEME] AM 0400 Chem 7 [Basic Metabolic Panel] AM 0400 04/08/18 04:00 CBC [Complete Blood Count] [HEME] AM 0400 Chem 7 [Basic Metabolic Panel] AM 0400 Date of Encounter: 04/06/18 Time of Encounter: 17:34 - Discharge Diagnosis (1) Pancreatitis Priority: Primary Status: Acute Qualifiers: Chronicity: acute Pancreatitis type: alcohol induced Acute pancreatitis complication: no infection or necrosis Qualified Code(s): K85.20 - Alcohol induced acute pancreatitis without necrosis or infection (2) Alcohol withdrawal Priority: Secondary Status: Acute Qualifiers: Complication of substance-induced condition: uncomplicated Qualified Code(s ): F10.230 - Alcohol dependence with withdrawal, uncomplicated (3) GERD (gastroesophageal reflux disease) Priority: Secondary Status: Acute Qualifiers: Esophagitis presence: without esophagitis Qualified Code(s): K21.9 - Gastro -esophageal reflux disease without esophagitis (4) Hyperlipidemia Priority: Secondary Status: Acute Qualifiers: Hyperlipidemia type: unspecified Qualified Code(s): E78.5 - Hyperlipidemia , unspecified (5) Insomnia Priority: Secondary Status: Acute Qualifiers: Insomnia type: unspecified Qualified Code(s): G47.00 - Insomnia, unspecified (6) Hypokalemia Priority: Secondary Status: Acute Hospital course: Mr. Mckeon is a 52 year old male past medical history of asthma hyperlipidemia hypertension R Vadim abuse. Patient presented to [facility] emergency department after experiencing several days of epigastric pain. He he does have a history of alcohol use he stopped drinking approximately 3 days prior to presentation due to pain and has been experiencing alcohol withdrawal. He normally drinks approximately 20/30 beers a day. The emergency department he was positive for benzodiazepine his blood alcohol level was less than 10 on presentation his lipase was 283 on presentation chest x-ray with no acute process. He was placed on CIWA precautions and continue to have withdrawal symptoms including hallucination and tremors he was treated appropriatelyor activity. He was given IV banana bag made nothing by mouth he was given antiemetics. Lab work was monitored. His pain has improved and today he had no pain. He tolerated a clear liquid diet this a.m. as well as advanced to a regular diet for lunch and dinner. No nausea vomiting or epigastric pain. Patient is requesting to be discharged. His potassium was low this a.m. and was replaced. Advised the patient to follow-up with primary care provider and have electrolytes monitored. Advised patient to stop drinking, he was given information for case management concerning AA and rehabilitation options. Patient verbalized understanding. Currently he is hemodynamically stable at this time, does have a ride who is here to pick him up and he is ready for discharge. - Time Spent with Patient Total time spent providing and/or coordinating discharge services: - Discharge Medications Home Medications: Fluticasone Propionate Nasal [Flonase] 2 spr NS DAILY PRN 01/09/18 [History] Losartan Potassium [Cozaar] 75 mg PO DAILY 01/09/18 [History] Montelukast [Singulair] 10 mg PO HS 01/09/18 [History] Naproxen 500 mg PO Q12H PRN 01/09/18 [History] Omeprazole [PriLOSEC] 40 mg PO DAILY 01/09/18 [History] Atorvastatin [Lipitor] 10 mg PO DAILY 02/25/18 [History] Acamprosate Calcium 333 mg PO TID 04/05/18 [History] Albuterol Sulfate [Ventolin Hfa] 2 puff IH Q6H PRN 04/05/18 [History] Cetirizine HCl [Zyrtec] 10 mg PO DAILY 04/05/18 [History] Zolpidem [Ambien] 10 mg PO HS PRN 04/05/18 [History] Allergies/Adverse Reactions: 3 Allergy/AdvReac Type Severity Reaction Status Date / Time diphenhydramine AdvReac Shakiness Verified 02/25/18 09:06 [From [facility]] Date of admission: 04/04/18 21:05 Primary care physician: Aj Tobias MD Consults: 04/04/18 21:26 Consult to [facility] [CONS] Routine Reason for SW Consult: alcohol withdrawal, may need counseling Discharging clinician: Chloé Doyle Anticipated date of discharge: 04/06/18 - Constitutional Vitals: Temp Pulse Resp BP Pulse Ox 99.2 F 95 18 150/90 96 04/06/18 16:11 04/06/18 16:11 04/06/18 16:11 04/06/18 16:11 04/06/18 16:11 General appearance: Present: cooperative, mild distress, A&O X 3, answers questions appropriately Exam: as above - Head Head exam: Present: atraumatic, normocephalic - Eye Eye exam: Present: PERRL, conjuntiva pink, sclera anicteric Pupils: Present: PERRL - Neck Neck exam general surgery: Present: supple, trachea midline. Absent: lymphadenopathy - Respiratory Respiratory exam: Present: CTAB. Absent: accessory muscle use, rales, rhonchi, wheezes - Cardiovascular Cardiovascular exam: Present: RRR, +S1, +S2. Absent: diastolic murmur, gallop, rubs, systolic murmur - GI/Abdominal GI/Abdominal exam: Present: normal bowel sounds, soft, no peritoneal signs. Absent: distended, tenderness - Extremities Exam Extremities exam: Present: warm, radial pulses palpable and symmetrical. Absent : calf tenderness, cyanotic, pedal edema - Neurological Exam Neurological exam: Present: CN II-XII intact, oriented X3, no focal deficits. Absent: pronater drift, facial droop, speech deficit - Skin Skin exam: Present: dry, intact - Patient Status Disposition: Home, Self-Care Condition: Fair Functional capacity at discharge: independent ambulation Overall status at discharge: patient is back to baseline - Discharge Instructions Instructions: Pancreatitis (DC), Abuse of Alcohol (DC), Alcohol Withdrawal (DC) Follow Up With: Aj Tobias MD [Primary Care Provider] - (An appointment has been requested with Dr. Tobias. The office will call with a date and time.) - Diet and Activity Activity: resume usual activities as tolerated Diet: advance to your usual diet
[2018-04-07] MEDS ORDERED: Thiamine (B-1) 100 MG TABLET PO SCH (09:00)
[2018-04-07] MEDS ORDERED: Vitamin B Complex/Vit C/Vit E 1 EACH TABLET PO SCH (09:00)
[2018-04-07] MEDS ORDERED: Folic Acid 1 MG TABLET PO SCH (09:00)
== END 2018-04-06 18:04 | disposition home or self-care (01) | DRG 282 ==
LOC: 3BNU 17:27 → EMEROO 17:27 → 3BNU 20:08
PROVIDERS: ADMIT Internal Medicine; ATTEND Internal Medicine